=== PATIENT | female | born 1975 ===

== ENCOUNTER 2017-03-27 08:28 | Inpatient (IN) | payer BC ==
[~2017-03-27] VITALS: Ht 154.9 cm; Wt 77.3 kg
[~2017-03-27 08:28] MED LIST: MOTRIN 600600 MG/TAB PO; PERCOCET 325 MG1 TA2 PO; PRENATAL1 TA1 PO
[2017-05-21] VITALS (33 sets, daily range): BP systolic 11–130; BP diastolic 52–84; PULSE 83–115; TEMP 97.4–98.2
[2017-05-21 07:53] LABS: MEAN CELL VOLUME 75 fl (80.0-100.0); MEAN CORPUSCULAR HGB CONC 30 g/dl (33.0-37.0); MEAN PLATELET VOLUME 11.3 fl (7.4-10.4); PLATELET COUNT 278 K/mm3 (130-400); REDCELL DISTRIBUTION WIDTH-CV 17.8 % (11.5-14.5); WHITE BLOOD COUNT 13.4 K/mm3 (4.8-10.8)
[2017-05-21 07:55] LABS: HEMATOCRIT 28.6 % (37.0-47.0); HEMOGLOBIN 8.7 g/dl (12.5-16.0); MEAN CORPUSCULAR HEMOGLOBIN 23 pg (27.0-31.0)
[2017-05-21 09:19] LABS: BAND 18 % (0-10); EOSINOPHIL 6 % (0-4); METAMYELOCYTE 1 % (0-0); MYELOCYTE 1 % (0-0); NEUTROPHILS 48 % (42.0-75.2); POLYCHROMASIA 1+; TOTAL CELLS COUNTED 100
[2017-05-21 09:20] LABS: ANISOCYTOSIS 1+; MICROCYTOSIS 1+
[2017-05-21 09:21] LABS: PLATELET ESTIMATE NORMAL (NORMAL)
[2017-05-21 09:22] LABS: ADD PATHOLOGY DIFF REVIEW YES
[2017-05-22 01:00] VITALS: BP 123/87; PULSE 95; TEMP 98.4
[2017-05-22 05:00] VITALS: BP 114/64; PULSE 97; TEMP 97.8
[2017-05-22 08:28] LABS: PATHOLOGY DIFF REVIEW OK
[2017-05-22 09:15] VITALS: BP 113/65; PULSE 90; TEMP 98
[2017-05-22 12:30] VITALS: BP 113/65; PULSE 90; TEMP 98
[2017-05-22 17:45] VITALS: BP 124/69; PULSE 93; TEMP 97.9
[2017-05-22 20:15] VITALS: BP 105/71; PULSE 97; TEMP 98.8
[2017-05-23 08:00] VITALS: BP 128/75; PULSE 90; TEMP 97.8
[2017-05-23] MEDS ORDERED: IBU600 MG PO (08:19)
== END 2017-05-23 13:00 | disposition home or self-care (01) | DRG 775 ==
LOC: EDSTATUS 08:28 → LDRO 10:51 → OB 05-21 07:04 → LDR 05-21 07:04 → OB 05-21 17:15
PROVIDERS: Obstetrics & Gynecology
PROC: 10E0XZZ Delivery of Products of Conception, External Approach (ICD-10-PCS; principal; 2017-05-21)
PROC: 3E033VJ Introduction of Other Hormone into Peripheral Vein, Percutaneous Approach (ICD-10-PCS; 2017-05-21)
DX: O48.0 Post-term pregnancy (principal); O69.1XX0 Labor and delivery complicated by cord around neck, with compression, not applicable or unspecified; Z3A.40 40 weeks gestation of pregnancy; Z37.0 Single live birth
CPT/HCPCS: J2590; J7120